=== PATIENT | male | born 1995 | race African-American/Black ===

== ENCOUNTER 2017-01-02 01:33 | Emergency (ER) | payer OTHER ==
[~2017-01-02] VITALS: Ht 185.4 cm; Wt 86.2 kg
[2017-01-02 01:34] VITALS: BP 128/72
--- NOTE | 2017-01-02 02:00 | NUR ---
PATIENT TO ER BED 8
--- NOTE | 2017-01-02 02:15 | NUR ---
21/M BIBA W/C/O ABDOMINAL PAIN AND VOMITING X2-3DAYS. STATES HE WAS AT [facility] X4HRS AND WENT OUTSIDE AND CALLED 911. NO MED HX
--- NOTE | 2017-01-02 02:33 | NUR ---
Dr. Parks evaluating patient at bedside.
[2017-01-02] MEDS ORDERED: ONDANSETRON 4 MG/2 ML VIAL IVP ONE (02:40)
[2017-01-02] MEDS ORDERED: KETOROLAC 30 MG/ML VIAL IVP ONE (02:40)
[2017-01-02] MEDS ORDERED: NACL 0.9% 2,500 ML IV ONE (02:40)
--- NOTE | 2017-01-02 02:50 | NUR ---
PT TAKEN TO CT
--- NOTE | 2017-01-02 03:04 | NUR ---
PT RETURN FROM CT
--- NOTE | 2017-01-02 03:53 | NUR ---
APPLE JUICE AND WATER GIVEN TO PT FOR PO CHALLENGE.
[2017-01-02 04:20] VITALS: BP 120/68
--- NOTE | 2017-01-02 04:20 | NUR ---
Patient discharged with v/s stable. Written and verbal after care instructions given and explained BY DR GUTIERREZ. Patient alert, oriented and verbalized understanding of instructions. Ambulatory with steady gait. All questions addressed prior to discharge. ID band removed. Patient advised to follow up with PMD. Rx of NAPROSYN AND ZOFRAN ODT given. Patient educated on indication of medication including possible reaction and side effects. Opportunity to ask questions provided and answered.
== END 2017-01-02 04:20 | disposition home or self-care (01) ==
LOC: MED 01:33
DX: R10.12 Left upper quadrant pain (principal); R11.2 Nausea with vomiting, unspecified; R03.0 Elevated blood-pressure reading, without diagnosis of hypertension
CPT/HCPCS: 36415; 74176; 80053; 83690; 85025; 96361; 96374; 96375; 99285; J1885; J2405; J7030